=== PATIENT | male | born 1930 | race Caucasian/White ===

== ENCOUNTER 2017-09-23 12:42 | Outpatient (CLI) | payer MEDICARE ==
--- NOTE | 2017-09-23 19:52 | PET ---
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 Restaging. COMPARISON: 06/18/16. TECHNIQUE: IV injection F-18 Fluorodeoxyglucose (FDG) dose: 14.5 mCi PET and attenuation-correction CT performed from skull base to proximal thighs. FINDINGS: SUV (standard uptake value) numbers given are maximum SUV's: No abnormal hypermetabolic activity in the neck. No abnormal hypermetabolic activity in the chest. Small to moderate sized hiatal hernia. There is a new finding of a cluster of several anterior preaortic and left paraaortic enlarged lymph nodes. Maximum SUV is 14.3. There is a new, small-moderate sized soft tissue density lobulated mass at midline in the mesentery, with SUV of 14.9. Much more superiorly, located a few centimeters inferior to the junction between the body and tail of the pancreas, there is another new finding of a cluster of small hypermetabolic mesenteric lymph nod es to the left of midline, with maximum SUV of 4.8. Several centimeters inferior to that, to the right of midline in the posterior mesentery, there is a new hypermetabolic lymph node abutting the anterior aspect of the third stage of the duodenum, with S UV of 8.2. There is no abnormal hypermetabolic activity in the pelvic cavity. IMPRESSION: 1. 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 2. Small-moderate hiatal hernia. JESUS Ochoa POS: MIRELLA
== END 2017-09-23 12:43 | disposition home or self-care (01) ==
LOC: PET 12:42
PROVIDERS: ATTEND Internal Medicine Hematology & Oncology
DX: C83.38 Diffuse large B-cell lymphoma, lymph nodes of multiple sites (principal); K44.9 Diaphragmatic hernia without obstruction or gangrene
CPT/HCPCS: 78815; A9552